=== PATIENT | female | born 1970 | race Caucasian/White ===

== ENCOUNTER 2017-10-08 10:18 | Emergency (ER) | payer MEDICAID ==
[~2017-10-08] VITALS: Ht 152.4 cm; Wt 89.5 kg
[2017-10-08 10:22] VITALS: BP 150/92
== END 2017-10-08 11:20 | disposition home or self-care (01) ==
LOC: ED 10:30
DX: L20.84 Intrinsic (allergic) eczema (principal); L20.82 Flexural eczema; H60.61 Unspecified chronic otitis externa, right ear
CPT/HCPCS: 99283

== ENCOUNTER 2019-11-29 21:34 | Emergency (ER) | payer MEDICAID ==
[~2019-11-29] VITALS: Ht 152.4 cm; Wt 83.1 kg
[2019-11-29 21:37] VITALS: BP 161/101
[2019-11-29] MEDS ORDERED: LIDOCAINE 1%-EPI 1:100K, 20ML ONE (21:45)
[2019-11-29] MEDS ORDERED: OXYMETAZOLINE NASAL SPRAY 0.05%,30ML ONE (21:45)
[2019-11-29] MEDS ORDERED: LIDOCAINE 1%-EPI 1:100K, 20ML INFIL ONE (22:00)
[2019-11-29] MEDS ORDERED: OXYMETAZOLINE NASAL SPRAY 0.05%,30ML NAS ONE (22:00)
== END 2019-11-29 22:31 | disposition home or self-care (01) ==
LOC: ED 22:05
DX: R04.0 Epistaxis (principal); R09.81 Nasal congestion; E03.9 Hypothyroidism, unspecified; J45.909 Unspecified asthma, uncomplicated; Z90.89 Acquired absence of other organs; F17.200 Nicotine dependence, unspecified, uncomplicated
CPT/HCPCS: 99282

== ENCOUNTER 2019-11-30 15:38 | Emergency (ER) | payer MEDICAID ==
[~2019-11-30] VITALS: Ht 160 cm; Wt 84.0 kg
[2019-11-30 15:42] VITALS: BP 163/77
--- NOTE | 2019-11-30 17:31 | NUR ---
NO ANSWER FROM [facility]
--- NOTE | 2019-11-30 17:36 | NUR ---
NO ANSWER FROM [facility]
== END 2019-11-30 18:14 | disposition left against medical advice (07) ==
LOC: ED 18:10
DX: R04.0 Epistaxis (principal); Z53.21 Procedure and treatment not carried out due to patient leaving prior to being seen by health care provider